=== PATIENT | male | born 1990 | race Caucasian/White ===

== ENCOUNTER 2023-11-08 13:53 | Emergency (ER) | payer OTHER, SELFPAY ==
[2023-11-08 13:58] VITALS: BP 174/110
[2023-11-08 14:15] LABS: % Eosinophils 1.8 % (0-6); % Immature Granulocytes 0.3 % (0-0.5); % Lymphocytes 36.2 % (20.5-51.1); % Monocytes 8.6 % (1.7-9.3); % Neutrophils 52.1 % (42.2-75.2); Absolute Basophils 0.1 10^3/uL (0-0.2); Absolute Eosinophils 0.1 10^3/uL (0-0.7); Absolute Lymphocytes 2.6 10^3/uL (1.2-3.4); Absolute Monocytes 0.6 10^3/uL (0.1-0.6); Absolute Neutrophils 3.8 10^3/uL (1.4-6.5); Hematocrit 42.3 % (39.0-52.0); Hemoglobin 14.3 g/dL (13.0-18.0); Mean Corp Hgb Conc. 33.8 g/dL (33.0-37.0); Mean Corpuscular Hgb 28.3 pg (27.0-31.0); Mean Corpuscular Volume 83.8 fL (80.0-94.0); Mean Platelet Volume 11.3 fL (7.4-10.4); Nucleated Red Blood Cells % 0 % (-); Platelet Count 272 10^3/uL (130-400); Red Blood Cell Count 5.05 10^6/uL (4.70-6.10); Red Cell Dist. Width 13.4 % (11.5-14.5); White Blood Cell Count 7.2 10^3/uL (4.8-10.8)
[2023-11-08 14:34] LABS: ALT (SGPT) 54 U/L (0-50); AST (SGOT) 40 U/L (17-59); Albumin 4.6 g/dl (3.5-5.0); Alkaline Phosphatase 70 U/L (38-126); Blood Urea Nitrogen 20 mg/dl (9-20); Calcium 9.6 mg/dl (8.4-10.2); Carbon Dioxide 25 mmol/L (22-30); Chloride 105 mmol/L (98-107); Glucose 111 mg/dl (70-99); Potassium 3.7 mmol/L (3.5-5.1); Sodium 137 mmol/L (135-145); Total Bilirubin 0.7 mg/dl (0.2-1.3); Total Protein 7.9 g/dl (6.3-8.2); eGFR > 60.00
[2023-11-08 14:40] LABS: Troponin I < 0.012 ng/ml
--- NOTE | 2023-11-08 15:12 | ED.GENMED ---
History of Present Illness
General
Chief Complaint: Heart Rate Problem
Time Seen by Provider: 11/08/23 15:07
Travel History
Have you had any contact with someone who has COVID-19?: No
Do you have any symptoms of coronavirus? Fever > 100 degrees, chills, cough, shortness of breath, sore throat, loss of taste or smell, muscle aches, or headache?: No
History of Present Illness
History of Present Illness:
33-year-old male history of anxiety depression presents the emergency department for evaluation rotations. He states his symptoms started on going intermittently for 1 year but is been persistent for the past several days. He did have a large cup
of coffee this morning and feels as though this worsened his symptoms. He previously underwent extensive workup as an outpatient through cardiology with echocardiogram, stress test, and Holter monitor that was unremarkable. He states he did not
have any palpitations while wearing the Holter monitor. Currently asymptomatic in the ER. Does admit to severe anxiety issues.
Past History
Past History
ED Past Medical History: Psychiatric (Anxiety/depression, panic attacks, substance abuse)
ED Past Surgical History: None
Social History
Tobacco: Non-smoker
Alcohol: Occasional
Personal: Single
Living: with family
Employment: Employed
Review of Systems
Review of Systems
Allergies reviewed?: Yes
All Other Systems: ROS reviewed and negative except as documented in HPI and ROS
Phy Exam
Physical Exam
Physical Exam:
GEN: Well appearing, NAD, WDWN
HEENT: Oral mucosa moist, no scleral icterus
Cardiac: Regular rate and rhythm, no murmurs, no extrasystoles
Lung: No respiratory distress, no tachypnea, lungs clear to auscultation bilaterally
MSK: No gross deformity or injuries
Skin: Good color, no pallor or jaundice, no rashes
Neuro: AO x3, moves all extremities freely
Psych: Calm, cooperative
Course
Orders/Labs/Results
Orders:
Orders
11/08/23 14:00
Electrocardiogram (*1) Urgent
Reason for Study: Palpitations
11/08/23 14:01
EKG- Treatment ONCE
11/08/23 14:09
Complete Blood Count/With Diff Urgent
Comprehensive Metabolic Panel Urgent
TSH Reflex To Free T4 Urgent
Comment: ADD ON
Troponin I Urgent
11/08/23 15:10
Add On- LAB Urgent
Tests Added?: TSH w reflex
Abnormal Lab Results
11/08/23
14:09
MPV 11.3 H fL
(7.4-10.4)
Glucose 111 H mg/dl
(70-99)
ALT 54 H U/L
(0-50)
11/08/23 14:09
11/08/23 14:09
Vital Signs
Initial and Last Documented VS:
Initial Vital Signs
Temp Pulse Resp BP Pulse Ox
98.4 F 122 20 174/110 99
11/08/23 13:58 11/08/23 13:58 11/08/23 13:58 11/08/23 13:58 11/08/23 13:58
Last Documented Vital Signs
Temp Pulse Resp BP Pulse Ox
98.4 F 122 20 174/110 99
11/08/23 13:58 11/08/23 13:58 11/08/23 13:58 11/08/23 13:58 11/08/23 13:58
MDM/Problems Addressed
MDM/Problems Addressed:
His symptoms certainly sound like PVCs or PACs, no evidence of this on telemetry or on EKG in the emergency department. Given his prior extensive workup being negative and his significant ongoing anxiety I feel be reasonable to trial the patient on
propranolol, recommend primary care follow-up
Comment
Comment:
EKG independently interpreted by me shows a sinus tachycardia at a rate of [address] changes concerning for ischemia, QTc of 482
*Critical Care Note
Total Time (30-74mins, 75-104mins- exclusive of procedures): Not Applicable
ED Attending Note
-
Portions of this chart may have been created with voice recognition software.� Occasional wrong word or��sound alike� substitutions may have occurred due to the inherent limitations of voice recognition software.
Discharge Plan
Departure
Patient Disposition: Home (Routine Discharge)
Date of Disposition: 11/08/23
Time of Disposition: 15:32
Patient with high blood pressure during this ER visit?: Yes
Discharge Problem:
Anxiety, Heart palpitations
Instructions: Palpitations (DC)
Prescriptions:
New
propranolol 80 mg capsule,extended release 24hr
80 mg PO HS Qty: 30 0RF
No Action
alprazolam 1 MG tablet
1 tab PO DAILY
Interventions
Interventions:
*Nursing Disposition Last Done: 11/08/23 15:42
Discharge Date and Time
Discharge Date/Time: 11/08/23 15:43
[2023-11-08 16:09] LABS: TSH Reflex To Free T4 1.87 uIU/ml (0.47-4.68)
== END 2023-11-08 15:43 | disposition home or self-care (01) ==
LOC: EMR 13:53
PROVIDERS: Emergency Medicine; EMERGENCY PHYSICIAN Emergency Medicine; FAMILY PHYSICIAN Nurse Practitioner Adult Health
DX: F41.9 Anxiety disorder, unspecified (principal); R00.2 Palpitations; R03.0 Elevated blood-pressure reading, without diagnosis of hypertension
CPT/HCPCS: 99284; 80053; 84443; 84484; 85025; 93005

== ENCOUNTER 2024-09-07 19:41 | Emergency (ER) | payer OTHER, SELFPAY ==
[2024-09-07 19:47] VITALS: BP 141/99
[2024-09-07 20:16] LABS: % Basophils 0.5 % (0-2); % Eosinophils 1.1 % (0-6); % Immature Granulocytes 0.2 % (0-0.5); % Lymphocytes 29.6 % (20.5-51.1); % Monocytes 5.4 % (1.7-9.3); % Neutrophils 63.2 % (42.2-75.2); Absolute Basophils 0.1 10^3/uL (0-0.2); Absolute Eosinophils 0.1 10^3/uL (0-0.7); Absolute Monocytes 0.6 10^3/uL (0.1-0.6); Absolute Neutrophils 6.5 10^3/uL (1.4-6.5); Hematocrit 43.1 % (39.0-52.0); Hemoglobin 14.5 g/dL (13.0-18.0); Mean Corp Hgb Conc. 33.6 g/dL (33.0-37.0); Mean Corpuscular Hgb 27.9 pg (27.0-31.0); Mean Corpuscular Volume 82.9 fL (80.0-94.0); Mean Platelet Volume 11.7 fL (7.4-10.4); Nucleated Red Blood Cells % 0 % (-); Platelet Count 267 10^3/uL (130-400); Red Cell Dist. Width 13.2 % (11.5-14.5); White Blood Cell Count 10.3 10^3/uL (4.8-10.8)
[2024-09-07 20:27] LABS: ALT (SGPT) 48 U/L (0-50); AST (SGOT) 33 U/L (17-59); Albumin 4.5 g/dl (3.5-5.0); Alkaline Phosphatase 77 U/L (38-126); Blood Urea Nitrogen 16 mg/dl (9-20); Calcium 9.3 mg/dl (8.4-10.2); Carbon Dioxide 28 mmol/L (22-30); Chloride 99 mmol/L (98-107); Glucose 114 mg/dl (70-99); Potassium 3.9 mmol/L (3.5-5.1); Sodium 139 mmol/L (135-145); Total Bilirubin 0.5 mg/dl (0.2-1.3); Total Protein 7.6 g/dl (6.3-8.2); eGFR > 60.00
[2024-09-07 20:36] LABS: COVID-19 Antigen Negative (Negative)
[2024-09-07] MEDS: TYLENOL 1000 MG PO (22:56)
[2024-09-07 22:58] VITALS: BMI 46.3
--- NOTE | 2024-09-07 22:59 | ED.GENMED ---
History of Present Illness
General
Chief Complaint: Cardiac Symptoms
Source: patient and previous hospital records (Previous ED visits 2022/October 2023 with complaints of palpitations. Unremarkable ED visits. Unremarkable echocardiogram June 2023, unremarkable stress test July 2023, unremarkable Holter
monitor November 2022)
Exam Limitations: none
Time Seen by Provider: 09/07/24 22:07
Nursing documentation reviewed up to this point in time: agreed with
History of Present Illness
History of Present Illness:
This is a 34-year-old obese gentleman who has history of anxiety/panic disorder, history of palpitations with prior unremarkable cardiac evaluations including unremarkable echo, stress test, Holter monitor 2022.
Tonight around 6 PM while taking a shower he admits to feeling lightheaded, feeling that he was going to pass out. Symptoms persisted despite getting out of the shower accompanied with diaphoresis, nausea, chest discomfort and feeling somewhat
short of breath. He was able to get out of the house, drive to the [employer] to treat in a router but symptoms persisted, seem to worsen on his drive home which prompted prompt called 911 upon returning home.
He did not lose consciousness and symptoms initially persisted despite taking a dose of alprazolam while at [employer] and then another dose upon EMS arrival.
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 Prehospital Accu-Chek questionably elevated. Patient unsure of the result but was asked if
he has diabetes.
He does have history of anxiety and current symptoms are somewhat similar to previous panic attacks however much more pronounced and more persistent.
Since arrival to the ED he is feeling markedly improved. He was able to drink water prior to arrival. He was feeling nauseated but had no vomiting. At 1 point he felt that he needed to pass a bowel movement but EMS arrived and his trip to the
bathroom was postponed. Abdominal discomfort has since resolved. No further urge to defecate.
Prior to this evening he has been feeling well, no recent URI nor GI illness.
He is a single parent raising 2 young daughters. He states his 4-year-old had a febrile illness and vomiting 1 week ago.
He denies recent travel.
No leg pain or swelling.
His daily medications include alprazolam, atorvastatin.
He denies alcohol and or drug use. Non-smoker.
Symptoms began during dinnertime. He has not had dinner as yet. His last meal was lunchtime around 11 AM.
He states his father was recently diagnosed with lower extremity thrombophlebitis.
Past History
Past History
ED Past Medical History: Psychiatric (Anxiety/depression, panic attacks, substance abuse)
ED Past Surgical History: None
Social History
Tobacco: Non-smoker
Alcohol: Occasional
Personal: Single
Living: with family
Employment: Employed
Family History
Family History: Other (Father with history of thrombophlebitis)
Phy Exam
Physical Exam
Physical Exam:
GENERAL: 34-year-old obese gentleman appears his stated age, awake and alert, very mildly anxious but easily communicative.
EYE: anicteric
NECK: Supple, nontender, no meningismus, no significant adenopathy.
ENT: posterior pharynx is clear, oral mucosa is moist. TM clear b/l, nares patent.
CARDIAC: Regular rate and rhythm. no murmur.
LUNGS: Clear breath sounds bilaterally, no acute respiratory distress, no wheezes/rales/rhonchi
ABDOMEN: Soft, nondistended, without focal tenderness, normoactive BS.
NEUROLOGICAL: Alert and oriented x3, no focal neuro deficits.
SKIN: Warm and dry, normal color, skin intact. No rash.
MUSCULOSKELETAL: No C/C/E. peripheral pulses are full and equal b/l. No palpable tenderness.
PSYCH: Normal and appropriate interaction.
Course
Orders/Labs/Results
Orders:
Orders
09/07/24 19:51
Electrocardiogram (*1) Urgent
Reason for Study: Fatigue / Weakness
EKG- Treatment ONCE
09/07/24 20:03
COVID-19 Antigen Urgent
Source: Nasal Swab
INF RAPID [Influenza A+B Rapid Molecular] Urgent
AMANDA Source: Nasal Swab
Specimen Description:
09/07/24 20:07
CMP [Comprehensive Metabolic Panel] Urgent
Complete Blood Count/With Diff Urgent
09/07/24 22:50
Acetaminophen [Tylenol] 1,000 mg PO NOW STA
09/07/24 22:54
D-Dimer Urgent
Troponin I Urgent
Abnormal Lab Results
09/07/24
20:07
MPV 11.7 H fL
(7.4-10.4)
Glucose 114 H mg/dl
(70-99)
09/07/24 20:07
09/07/24 20:07
Vital Signs
Initial and Last Documented VS:
Initial Vital Signs
Pulse Resp BP Pulse Ox
109 20 141/99 99
09/07/24 19:47 09/07/24 19:47 09/07/24 19:47 09/07/24 19:47
Last Documented Vital Signs
Temp Pulse Resp BP Pulse Ox
99.1 F 94 18 152/98 99
09/07/24 23:02 09/07/24 23:30 09/07/24 23:30 09/07/24 23:00 09/07/24 23:30
MDM/Problems Addressed
Differential Diagnosis Includes:
Concern for vasovagal episode, ACS, viral syndrome, gastroenteritis, tachyarrhythmia, hypoglycemia, other consideration is PE.
Anxiety/panic may have also contributed to symptoms but I suspect anxiety and panic developed secondarily.
Noted to be mildly hypertensive and upon my initial evaluation, borderline low-grade fever with oral temperature 99 �F. Concern for potential early onset of a viral syndrome/gastroenteritis.
Labs thus far unremarkable.
Random glucose 114.
COVID and flu testing are negative.
EKG shows sinus tachycardia otherwise unremarkable and overall similar and unchanged from previous EKG October 2023.
Will check troponin and although sinus tachycardia has resolved and similar sinus tachycardia noted on previous EKG with complaints of chest pain, lightheadedness, concern for potential near syncope must consider thromboembolism thus will check
D-dimer.
Will give Tylenol for borderline low-grade fever and will give turkey sandwich as patient missed dinner; has not eaten since 11 AM.
Chronic conditions affecting care: Psychiatric illness
*Pulse Oximetry
Patient hypoxic: no
*EKG
Interpreted by ED Provider?: Yes
Interpretation: abnormal
Comparison EKG: no changes (Unchanged from previous October 2023)
Rate: tachycardiac
Rhythm: sinus
[place]: normal axis
Interval: normal interval
QRS Pattern: normal QRS
Ischemia: no ischemia
*Supervisor Cell Maintenance Interpretation
Rate: normal
Interpretation: normal
Rhythm: sinus
*Critical Care Note
Total Time (30-74mins, 75-104mins- exclusive of procedures): Not Applicable
Update Note
Update Note:
23:50
Troponin and D-dimer within normal limits.
Patient has had no return of symptoms, feeling well.
Continues with mildly elevated blood pressure but sinus tachycardia has resolved.
He does follow with his PCP on a regular basis and states blood pressure was normal 1 month ago.
Discussed importance of staying well-hydrated on a daily basis. Avoid high sodium foods.
Prompt follow-up with PCP for recheck.
Along with follow-up with PCP, due to obesity, chronic poor sleep, I have recommended he discuss outpatient testing for obstructive sleep apnea/home sleep study.
ED Attending Note
-
Portions of this chart may have been created with voice recognition software.� Occasional wrong word or��sound alike� substitutions may have occurred due to the inherent limitations of voice recognition software.
Discharge Plan
Departure
Patient Disposition: Home (Routine Discharge)
Date of Disposition: 09/07/24
Time of Disposition: 23:57
Patient with high blood pressure during this ER visit?: Yes
Condition: Good
Discharge Problem:
Vasovagal episode, Acute nonspecific chest pain with low risk of coronary artery disease
Instructions: Chest Pain PCP Follow Up, BLOOD PRESSURE
Prescriptions:
No Action
alprazolam 1 MG tablet
1 tab PO DAILY PRN (Reason: anxiety)
atorvastatin 20 mg Tablet
20 mg PO HS
propranolol 80 mg capsule,extended release 24 hr
80 mg PO HS PRN (Reason: panic)
Referrals:
Jose Infante CRNP [Family Provider] - Call in 1-3 days for appt
Interventions
Interventions:
*Risk Screen - Suicide Last Done: 09/07/24 22:59
*General Assessment Last Done: 09/07/24 22:59
*Neglect/Abuse Screening Last Done: 09/07/24 22:59
ED- Fall Risk Assessment Last Done: 09/07/24 22:58
*ED COVID-19 Vaccine History Last Done: 09/07/24 22:59
*Nursing Disposition Last Done: 09/08/24 00:00
ED- Pulmonary Assessment Last Done: 09/07/24 23:25
ED- Cardiac Assessment Last Done: 09/07/24 23:25
Discharge Date and Time
Discharge Date/Time: 09/08/24 00:00
Print Language: ITALIAN
[2024-09-07 23:00] VITALS: BP 152/98
[2024-09-07 23:13] LABS: D-Dimer < 0.27 ug/mlFEU (0.00-0.50)
[2024-09-07 23:23] LABS: Troponin I 0.014 ng/ml
== END 2024-09-08 | disposition home or self-care (01) ==
LOC: EMR 19:41
PROVIDERS: Emergency Medicine; EMERGENCY PHYSICIAN Emergency Medicine; FAMILY PHYSICIAN Nurse Practitioner Adult Health
DX: R55 Syncope and collapse (principal); R07.89 Other chest pain; I25.10 Atherosclerotic heart disease of native coronary artery without angina pectoris; F41.8 Other specified anxiety disorders; Z79.899 Other long term (current) drug therapy
CPT/HCPCS: 99283; 80053; 84484; 85025; 85379; 87502; 87811; 93005